=== PATIENT | female | born 1945 | race Caucasian/White ===

== ENCOUNTER 2018-03-30 03:30 | Emergency (ER) | payer OTHER ==
[~2018-03-30] VITALS: Ht 167.6 cm; Wt 124.5 kg
[~2018-03-30 03:30] MED LIST: ACETAMINOPHEN-1 EAC1 PO; ALEVE220 MG PO; ALLOPURINOL300 MG PO; LO-DOSE ASPIRIN81 M1 PO; NEXIUM40 MG PO; OXYTROL TRANSD3.9 MG TD; POTASSIUM CITR10 MEQ PO; SYNTHROID150 MCG PO; TENORMIN50 MG PO; TYLENOL EXTRA500 MG PO; VITAMIN D1000 UNIT PO
[2018-03-30] MEDS ORDERED: LIDODERM 5% P1 PATCH TD (05:54)
[2018-03-30 07:00] VITALS: BP 178/99
== END 2018-03-30 07:02 | disposition home or self-care (01) ==
LOC: EME 03:30
DX: S22.41XA Multiple fractures of ribs, right side, initial encounter for closed fracture (principal); S92.414A Nondisplaced fracture of proximal phalanx of right great toe, initial encounter for closed fracture; M25.512 Pain in left shoulder; W01.0XXA Fall on same level from slipping, tripping and stumbling without subsequent striking against object, initial encounter; Y92.26 Movie house or cinema as the place of occurrence of the external cause; M85.871 Other specified disorders of bone density and structure, right ankle and foot; I10 Essential (primary) hypertension; Z79.82 Long term (current) use of aspirin; Z90.49 Acquired absence of other specified parts of digestive tract
CPT/HCPCS: 71250; 73060; 73630; 99281; 99285

== ENCOUNTER 2018-05-24 22:20 | Emergency (ER) | payer OTHER ==
[~2018-05-24] VITALS: Ht 167.6 cm; Wt 121.0 kg
[~2018-05-24 22:20] MED LIST changes: +LIDODERM 5% P1 PATCH TD
[2018-05-24 22:59] LABS: BASOPHIL (%) 0.5 % (0-1); BASOPHIL COUNT 0.1 K/uL (0-0.1); EOSINOPHIL (%) 2.3 % (0-5); EOSINOPHIL COUNT 0.2 K/uL (0-0.3); HEMATOCRIT 35.8 % (36.0-46.0); HEMOGLOBIN 11.3 G/DL (11.9-15.5); IMMATURE GRANULOCYTE (%) 0.4 % (0.0-0.7); LYMPHOCYTE COUNT 1.6 K/uL (1.0-2.8); MCH 26.5 PG (29.0-34.0); MCHC 31.6 G/DL (30.0-36.0); MCV 83.8 FL (83-99); MONOCYTE (%) 7.3 % (3-12); MONOCYTE COUNT 0.8 K/uL (0-0.8); NEUTROPHIL (%) 74.5 % (45-76); NEUTROPHIL COUNT 7.9 K/uL (1.8-6.4); NRBC (%) 0.2 /100 WBC (0-0); PLATELET COUNT 182 K/uL (156-360); RBC DIS.WIDTH-CV 14.8 % (11.8-14.6); RBC DIS.WIDTH-SD 45.1 % (39-53); RED BLOOD COUNT 4.27 M/uL (3.80-5.20); WHITE BLOOD COUNT 10.6 K/uL (4.1-10.2)
[2018-05-24 23:08] LABS: CHLORIDE 104 mEq/L (99-109); POTASSIUM 4.3 mEq/L (3.7-5.4); SODIUM 139 mEq/L (136-147)
[2018-05-24 23:09] LABS: GLUCOSE 137 mg/dL (70-99)
[2018-05-24 23:13] LABS: CREATININE 1.2 mg/dL (0.6-1.3); GFR ESTIMATE (CALCULATED) 47 mL/min/
[2018-05-24 23:14] LABS: UREA NITROGEN (BUN) 17 mg/dL (9-23)
[2018-05-24 23:22] LABS: TROP-I INTERPRETATION NEGATIVE; TROPONIN-I < 0.01 ng/mL (0.0-0.30)
[2018-05-25] MEDS ORDERED: PROVENTIL HFA6.7 GM IH (01:09)
[2018-05-25] MEDS ORDERED: ZITHROMAX250 MG PO (01:09)
[2018-05-25 01:34] VITALS: BP 145/78
== END 2018-05-25 01:35 | disposition home or self-care (01) ==
LOC: EME 22:20
PROVIDERS: Emergency Medicine
DX: J40 Bronchitis, not specified as acute or chronic (principal); I10 Essential (primary) hypertension; K21.9 Gastro-esophageal reflux disease without esophagitis; Z90.49 Acquired absence of other specified parts of digestive tract; Z79.82 Long term (current) use of aspirin; Z88.2 Allergy status to sulfonamides
CPT/HCPCS: 71046; 80048; 83880; 84484; 85025; 93005; 94640; 99281; 99285; J1100